=== PATIENT | male | born 1935 | race Caucasian/White ===

== ENCOUNTER → 2021-04-05 | Outpatient (CLI) | payer MEDICARE ==
[2015-03-02 14:56] VITALS: BP 162/92
[~2021-04-05] MED LIST: AMLO-186 PO; DOXA1TAB2 PO; ENAL20TA10 PO; HYDR-2145 PO; MV-M1TAB36 PO; RANI-369 PO; RANI150C PO
--- NOTE | 2021-04-05 11:33 | RAD ---
EXAM: Thyroid sonogram. HISTORY: Thyroid nodule. TECHNIQUE: Sonographic imaging of the thyroid was performed. COMPARISON: None. FINDINGS: The right thyroid lobe measures 4.4 x 1.1 x 1.2 cm. The left thyroid lobe measures 4.0 x 1. 9 x 1.7 cm. The thyroid isthmus measures 3.1 mm. There is a heterogeneous partially cystic lesion with solid mural component within the inferior left thyroid lobe measuring 2.2 x 1.7 x 1.4 cm. This demonstrates slight indistinct margins and moderate m ental morphology. There is a 5 mm nodule or complicated cyst within the mid zone of the right thyroid lobe. No additional measurable lesion is seen. IMPRESSION: 1. 2.2 cm partially cystic lesion with solid mural component within the left thyroid lobe. TI-RADS Ca tegory 3. Sonographic follow-up is typically recommended for category 3 lesion to the size and fine-n eedle aspiration is recommended for category 3 lesions equal to or greater than 2.5 cm. 2. Tiny nodule or cyst within the right there are lobe. TI-RADS Category 2. Electronically signed by: Dominique Villanueva MD (04/05/2021 11:31 AM) [id number]
== END ==
LOC: US 09:51
PROVIDERS: ATTEND Family Medicine
DX: E04.1 Nontoxic single thyroid nodule (principal)
CPT/HCPCS: 76536